=== PATIENT | male | born 1970 | race Caucasian/White ===

== ENCOUNTER → 2023-08-06 19:03 | Outpatient (REF) | payer OTHER, SELFPAY | LOC: MRI 3T 19:03 | PROVIDERS: ATTENDING PHYSICIAN Surgery | DX: R97.20 Elevated prostate specific antigen [PSA] (principal) | CPT/HCPCS: 72197; A9575 ==

== ENCOUNTER 2024-02-26 20:47 | Emergency (ER) | payer OTHER, SELFPAY ==
[2024-02-26 20:49] VITALS: BP 132/99
--- NOTE | 2024-02-26 21:25 | ED.SKININJ ---
HPI-Injury
General
Chief Complaint: Bite
Source: patient
Exam Limitations: none
Time Seen by Provider: 02/26/24 21:07
History of Present Illness-Injury
Is this injury a work related problem?: No
Is pt an associate of [facility]/[place]?: No
Initial Injury comments:
This is a 53 year old male that comes in with c/o dog bit. States that his dogs were fighting over food and he went to pull them apart and they bit his hand. States that he was unable to get it to stop bleeding so he came in. States that the dogs
are up to date on their shots. Denies any fever, chills, nausea, vomiting, diarrhea.
Past History
Past History
ED Past Medical History: Hypercholesterolemia and Other (Neck pain, Constipation, hemorrhoids,)
ED Past Surgical History: Orthopedic (cervical fusion, Right Bicep repair)
Social History
Tobacco: Non-smoker
Alcohol: Occasional
Personal:
Living: with family
Employment: Employed
Review of Systems
Review of Systems
All Other Systems: ROS reviewed and negative except as documented in HPI and ROS
Constitutional: Reports no symptoms; Denies fever or chills
EENT: Reports no symptoms
Respiratory: Reports no symptoms
Cardiac: Reports no symptoms
ABD/GI: Reports no symptoms; Denies nausea, vomiting or diarrhea
: Reports no symptoms
Musculoskeletal: Reports no symptoms
Skin: Reports other (Dog bit to the left hand)
Neurological: Reports no symptoms
Psychiatric: Reports no symptoms
Skin Exam
Laceration
Left Dorsal Hand:
Length in cm: 4
Orientation: horizontal
Type of Laceration: simple
Any active bleeding?: low grade venous oozing
Distal skin color and temperature: normal-warm & good color
Normal distal neurovascular exam: Yes
Range of motion: full
Left Hand:
Length in cm: 2.5
Orientation: vertical
Type of Laceration: simple
Any active bleeding?: low grade venous oozing
Distal skin color and temperature: normal-warm & good color
Normal distal neurovascular exam: Yes
Range of motion: full
Phy Exam
General Physical Exam
General Presentation: well appearing and no apparent distress
General age: appears stated age
General Skin: warm and dry
General Habitus: normal
General Mental: alert
General Hydration: appears well hydrated
Eye Exam
Eye Exam: EOMI
Musculoskeletal Exam
Musculoskeletal Exam: full ROM
Skin Exam
Skin Exam: normal color, warm/dry and laceration (two laceration on the dorsal aspect of the left hand. Left index finger with simple laceration that will be left open. )
Psychiatric Exam
Psychiatric Exam: normal mood/affect
Course
Orders/Labs/Results
Orders:
Orders
02/26/24 21:24
Amoxicillin 875 mg/Clav 125 mg [Augmentin 875 mg/125 mg] 1 tablet PO NOW STA
Tetanus/Diphth/Acelpertussis [Adacel] 0.5 ml IM .ONCE ONE
Vital Signs
Initial and Last Documented VS:
Initial Vital Signs
Temp Pulse Resp BP Pulse Ox
98.0 F 100 18 132/99 98
02/26/24 20:49 02/26/24 20:49 02/26/24 20:49 02/26/24 20:49 02/26/24 20:49
Last Documented Vital Signs
Temp Pulse Resp BP Pulse Ox
98.0 F 100 18 132/99 98
02/26/24 20:49 02/26/24 20:49 02/26/24 20:49 02/26/24 20:49 02/26/24 20:49
MDM/Problems Addressed
Differential Diagnosis Includes:
Dog bit
MDM/Problems Addressed:
This is a 53 year old male that comes in with c/o dog bit to his left hand.
Explained to patient that normally we do not sutured closed dog bits due to infection. Will place one suture in each laceration to help keep them slightly closed. Will place patient on antibiotics and give a Adacel injection. Patient to watch for
any redness or drainage. Follow up with the family doctor for recheck and to remove the suture in 10 days. Patient to return with any concerns.
Chronic conditions affecting care:
NA
Acute Exacerbation and/or Progression of Chronic Illness:
NA
*Pulse Oximetry
Patient hypoxic: no
*EKG
Interpreted by ED Provider?: NA
Rate: EKG- N/A
*Mold Car Pusher Interpretation
Rate: Mold Car Pusher- N/A
*Critical Care Note
Total Time (30-74mins, 75-104mins- exclusive of procedures): Not Applicable
ED Attending Note
-
Portions of this chart may have been created with voice recognition software.� Occasional wrong word or��sound alike� substitutions may have occurred due to the inherent limitations of voice recognition software.
Discharge Plan
Departure
Patient Disposition: Home (Routine Discharge)
Date of Disposition: 02/26/24
Time of Disposition: 21:34
Patient with high blood pressure during this ER visit?: Yes
Condition: Good
Covid-19: Not Applicable
Discharge Problem:
Dog bite of hand
Instructions: Animal Bites (DC), Laceration Repair With Stitches (DC), BLOOD PRESSURE
Prescriptions:
New
amoxicillin-pot clavulanate 875-125 mg tablet
1 tab PO BID Qty: 14 0RF
Activity Restrictions/Additional Instructions:
As discussed, you have had one suture place in the 2 laceration on the hand. Please follow up with the family doctor in 2 days for a wound check and in 10-14 days to have the sutures removed. The laceration has have not been closed all the way
due to the risk of infection. You have been started on an antibiotic and given your first dose here. Your prescription has been sent to your pharmacy. You have also been given a Adacel injection. IF YOU HAVE ANY REDNESS, DRAINAGE OR YOU HAVE ANY
OTHER CONCERNS PLEASE RETURN TO THE EMERGENCY ROOM.
Interventions
Interventions:
*Risk Screen - Suicide Last Done: 02/26/24 20:49
*General Assessment Last Done: 02/26/24 20:49
*Neglect/Abuse Screening Last Done: 02/26/24 20:49
ED- Fall Risk Assessment Last Done: 02/26/24 21:16
*ED COVID-19 Vaccine History Last Done: 02/26/24 20:49
ED-Skin Assessment Last Done: 02/26/24 21:16
Discharge Date and Time
Print Language: NAMIBIAN
[2024-02-26] MEDS: ADACEL 0.5 ML IM (21:37)
[2024-02-26] MEDS: AUGMENTIN 875 MG/125 MG 1 TABLET PO (21:37)
== END 2024-02-26 21:50 | disposition home or self-care (01) ==
LOC: EMR 20:47
PROVIDERS: EMERGENCY PHYSICIAN Emergency Medicine; FAMILY PHYSICIAN Physician Assistant Medical
DX: S61.452A Open bite of left hand, initial encounter (principal); W54.0XXA Bitten by dog, initial encounter; Z23 Encounter for immunization; Z87.19 Personal history of other diseases of the digestive system; E78.00 Pure hypercholesterolemia, unspecified; K59.00 Constipation, unspecified
CPT/HCPCS: 99282; 90471; 90715